=== PATIENT | female | born 1995 | race Caucasian/White ===

== ENCOUNTER 2016-10-02 17:42 | Emergency (ER) | payer SELFPAY ==
[2016-10-02 17:47] VITALS: BP 129/72
--- NOTE | 2016-10-02 18:01 | PHYS DOC ---
Past Medical History Past Medical History: No Pertinent History Additional Past Medical Histor: PATIENT RPTS UNKNOWN "ECHO DYSRHYTHMIA" Past Surgical History: Alcohol Use: None Drug Use: None Adult General Chief Complaint Chief Complaint: PAIN ON URINATION [facility] HPI Patient is a 20 year old female presents to the emergency department with a history of UTI symptoms for 1 week. Patient states she has had frequency, urgency and pain with urination. She denies vaginal discharge. Patient states she has been drinking cranberry juice with no relief. Patient does state she has been nauseated denies vomiting. C/o suprapubic abdominal pain. Review of Systems Review of Systems Constitutional: Denies fever or chills [] Eyes: Denies change in visual acuity, redness, or eye pain [] HENT: Denies nasal congestion or sore throat [] Respiratory: Denies cough or shortness of breath [] Cardiovascular: No additional information not addressed in HPI [] GI: Denies abdominal pain, nausea, vomiting, bloody stools or diarrhea [] : dysuria denies hematuria [] Musculoskeletal: Denies back pain or joint pain [] Integument: Denies rash or skin lesions [] Neurologic: Denies headache, focal weakness or sensory changes [] Endocrine: Denies polyuria or polydipsia [] Allergies Allergies Allergies Coded Allergies Type Severity Reaction Last Updated Verified No Known Drug Allergies 09/01/13 No Physical Exam Physical Exam Constitutional: Well developed, well nourished, no acute distress, non-toxic appearance. [] HENT: Normocephalic, atraumatic, bilateral external ears normal, oropharynx moist, no oral exudates, nose normal. [] Eyes: PERRLA, EOMI, conjunctiva normal, no discharge. [] Neck: Normal range of motion, no tenderness, supple, no stridor. [] Cardiovascular:Heart rate regular rhythm, no murmur [] Lungs & Thorax: Bilateral breath sounds clear to auscultation [] Abdomen: Bowel sounds hypoactive, soft, suprapubic tenderness, no masses, no pulsatile masses. [] Skin: Warm, dry, no erythema, no rash. [] Back: No tenderness, no CVA tenderness. [] Extremities: No tenderness, no cyanosis, no clubbing, ROM intact, no edema. [] Neurologic: Alert and oriented X 3, normal motor function, normal sensory function, no focal deficits noted. [] Psychologic: Affect normal, judgement normal, mood normal. [] Current Patient Data Vital Signs Vital Signs Date Time Temp Pulse Resp B/P (MAP) Pulse Ox O2 Delivery O2 Flow Rate FiO2 10/02/16 17:47 98.6 98 18 99 Room Air 98.6 Lab Values Laboratory Tests Test 10/02/16 17:07 10/02/16 18:00 POC Urine HCG, Qualitative Hcg positive (Negative) Urine Collection Type Unknown Urine Color Yellow Urine Clarity Clear Urine pH 7.0 Urine Specific [place] 1.015 Urine Protein Negative mg/dL (NEG-TRACE) Urine Glucose (UA) Negative mg/dL (NEG) Urine Ketones (Stick) Negative mg/dL (NEG) Urine Blood Negative (NEG) Urine Nitrite Negative (NEG) Urine Bilirubin Negative (NEG) Urine Urobilinogen Dipstick 0.2 mg/dL (0.2 mg/dL) Urine Leukocyte Esterase Negative (NEG) Urine RBC 0 /HPF (0-2) Urine WBC Occ /HPF (0-4) Urine Squamous Epithelial Cells Few /LPF Urine Amorphous Sediment Present /HPF Urine Bacteria Few /HPF (0-FEW) Urine Mucus Mod /LPF EKG EKG [] Radiology/Procedures Radiology/Procedures [] Course & Med Decision Making Course & Med Decision Making Pertinent Labs and Imaging studies reviewed. (See chart for details) She was urine test was positive. Patient states that she has not missed her menstrual cycle as of this month. Patient's urine was negative for urinary tract infection. Patient will be provided with [employer] to follow-up with within the next week. Signs and symptoms to return back to emergency department been provided. Patient will be discharged home in stable condition. [] Dragon Disclaimer Dragon Disclaimer This electronic medical record was generated, in whole or in part, using a voice recognition dictation system. Departure Departure Impression: Primary Impression: Dysuria Additional Impression: Disposition: 01 HOME, SELF-CARE Condition: STABLE Referrals: NO PCP (PCP) RAMIRO ARCHER MD Patient Instructions: ABCs of , Dysuria-Brief, Additional Instructions: Your urine was negative for urinary tract infection. You will be treated for dysuria. Tylenol for pain and discomfort. Drink plenty of fluids such as water and cranberry juice. Avoid cranberry juice cocktail, carbonated beverages, alcohol, citrus fruits as these are considered irritants to the bladder. Medication as prescribed. Follow-up with an [facility] [facility] in the next week. Return back to emergency department sign symptoms of become worse. Scripts Cephalexin (KEFLEX) 500 Mg Capsule 1 CAP PO BID, #14 CAP Prov: HANK OLIVER APRN 10/02/16 Problem Qualifiers HANK OLIVER APRN October 02, 2016 18:01
[2016-10-02 18:09] LABS: BILIRUBIN,URINE NEGATIVE (NEG); GLUCOSE,URINE NEGATIVE (NEG); NITRITE,URINE NEGATIVE (NEG); PROTEIN,URINE NEGATIVE (NEG-TRACE); UROBILINOGEN,URINE 0.2 mg/dL (0.2 mg/dL)
[2016-10-02 18:19] LABS: RBC,URINE 0 /HPF (0-2); WBC,URINE OCC /HPF (0-4)
[2016-10-02 18:20] LABS: BACTERIA,URINE FEW /HPF (0-FEW); SQUAMOUS EPITHELIAL CELL,UR FEW /LPF
[2016-10-02] MEDS ORDERED: CEPH-264 PO (18:25)
== END 2016-10-02 18:39 | disposition home or self-care (01) ==
LOC: ER 17:42
DX: Z33.1 Pregnant state, incidental (principal); R30.0 Dysuria; R35.0 Frequency of micturition; R10.9 Unspecified abdominal pain; R39.15 Urgency of urination; Z98.890 Other specified postprocedural states
CPT/HCPCS: 81001; 81025; 84703; 99283